=== PATIENT | male | born 1955 | race Caucasian/White ===

== ENCOUNTER 2018-11-06 16:24 | Observation (INO) | payer OTHER ==
[2018-11-06 17:11] LABS: Absolute Lymphocytes (CBC) 1.2 K/uL (0.7-4.9); Basophils % 0.6 % (0-1.3); Hematocrit 48.1 % (39.6-49.0); Lymphocytes % 12.6 % (15.3-44.8); RBC Red Blood Cell Count 5.26 M/uL (4.33-5.43)
[2018-11-06 17:32] LABS: Bilirubin Direct 0.1 mg/dL (0-0.2); Bilirubin Total 0.5 mg/dL (0.2-1.0); Potassium 3.6 mmol/L (3.5-5.1); Protein, Total 7.3 g/dL (6.4-8.2)
--- NOTE | 2018-11-06 18:08 | RAD REPORT ---
EXAM DESCRIPTION: CT - Abdomen Pelvis W Contrast - 11/06/2018 5:49 pm CLINICAL HISTORY: Abdominal pain, nausea and vomiting, diarrhea, GI bleed COMPARISON: October 17 TECHNIQUE: Biphasic, helical CT imaging of the abdomen and pelvis was performed following 100 ml non -ionic IV contrast. Oral contrast was given. All CT scans are performed using dose optimization technique as appropriate and may include automated exposure control or mA/KV adjustment according to patient size. FINDINGS: No suspicious findings in the lung bases. The liver, spleen, and pancreas show no suspicious findings. Gallbladder and biliary tree are also wi thout suspicious finding. Symmetric renal function is seen with no hydronephrosis or suspicious renal mass. No pyelonephritis o r acute parenchymal process. An approximately 4 cm upper pole right renal cyst is again identified. N onobstructing 5 mm calcification lower pole left kidney. Mild dilatation of the left pelvis and calic es believed to be normal variant extrarenal pelvis. No acute left-sided obstructive process. No adren al abnormalities. Urinary bladder shows no suspicious finding. Prostate gland and seminal vesicles wi thout suspicious finding. No gastric dilatation or wall thickening. No dilated small bowel loops. A few fluid-filled small rashawn l loops are present. Moderate stool volume is seen in the cecum and ascending colon with remainder th e colon mostly decompressed. A focal mass is not identified. Colitis is not confirmed. Mild mucosal l evel inflammatory changes could be occult on CT imaging. No free air, free fluid or inflammatory stranding. No hernia, mass or bulky lymphadenopathy. No suspicious bony findings. IMPRESSION: No bowel obstruction, free air or surgically emergent finding seen. A few prominent small bowel loops are present favoring ileus or gastroenteritis. The colon as visuali zed is without acute finding. No abnormality seen that would explain a GI bleed.
[2018-11-06] MEDS ORDERED: NA CHLORIDE 0.9% 1,000 ML ONE (18:42)
[2018-11-06] MEDS ORDERED: CIPROFLOXACIN 400mg IV 0 MG/0 ML BAG IV ONE (18:43)
[2018-11-06] MEDS ORDERED: METRONIDAZOLE 500mg IVPB 500 MG/100 ML BAG IV ONE (18:43)
--- NOTE | 2018-11-06 18:54 | ER ---
Nurse's Notes [facility] Name: Martin Hodges Age: 63 yrs Sex: Male : 1955 Arrival Date: 11/06/2018 Time: 16:27 Bed 5 Private MD: Jarocho Harrell T Diagnosis: Gastrointestinal hemorrhage, unspecified Presentation: 11/06 16:51 Presenting complaint: Patient states: Sent by Dr Aceves, reports severe lower abdominal ph pain this morning followed by N/V, then had dark blackish stool ,followed by diarrhea w/ bright red blood, also reports low BP at [place]'s office, pt normotensive in triage. Transition of care: patient was received from another setting of care (ambulatory specialty care practice), Dr Aceves. Onset of symptoms was November 06, 2018. Risk Assessment: Do you want to hurt yourself or someone else? Patient reports no desire to harm self or others. Care prior to arrival: None. 16:51 Method Of Arrival: Ambulatory ph 16:51 Acuity: CORTES 3 ph 19:41 Initial Sepsis Screen: Does the patient meet any 2 criteria? No. Patient's initial jd3 sepsis screen is negative. Does the patient have a suspected source of infection? No. Patient's initial sepsis screen is negative. Historical: - Allergies: 16:54 Codeine; ph - PMHx: 16:54 GERD; ph - Immunization history:: Adult Immunizations unknown. - Social history:: Smoking status: unknown. - Ebola Screening: : Patient negative for fever greater than or equal to 101.5 degrees Fahrenheit, and additional compatible Ebola Virus Disease symptoms. Screenin:39 Abuse screen: Denies threats or abuse. Nutritional screening: No deficits noted. jd3 Tuberculosis screening: No symptoms or risk factors identified. Fall Risk Ambulatory Aid- None/Bed Rest/Nurse Assist (0 pts). Gait- Normal/Bed Rest/Wheelchair (0 pts) Mental Status- Oriented to own ability (0 pts). Total Mark Fall Scale indicates No Risk (0-24 pts). Assessment: 19:32 General: Appears in no apparent distress. comfortable, well groomed, Behavior is calm, jd3 cooperative, appropriate for age. Pain: Denies pain. Neuro: Level of Consciousness is awake, alert, obeys commands, Oriented to person, place, time, situation. Cardiovascular: Capillary refill < 3 seconds Patient's skin is warm and dry. Respiratory: Airway is patent Respiratory effort is even, unlabored, Respiratory pattern is regular, symmetrical, Denies cough, shortness of breath. GI: Abdomen is round Reports bloody stool. : No signs and/or symptoms were reported regarding the genitourinary system. EENT: No signs and/or symptoms were reported regarding the EENT system. Derm: Skin is intact, Skin is dry, Skin is pale, Skin temperature is warm. Musculoskeletal: Circulation, motion, and sensation intact. Range of motion: intact in all extremities. 19:52 Reassessment: Patient appears in no apparent distress at this time. Patient and/or jd3 family updated on plan of care and expected duration. Pain level reassessed. Patient is alert, oriented x 3, equal unlabored respirations, skin warm/dry/pink. pt reported understanding of discharge instructions. even and steady gait upon discharge. Patient denies pain at this time. Patient states feeling better. 20:22 Reassessment: Patient appears in no apparent distress at this time. Patient and/or jd3 family updated on plan of care and expected duration. Pain level reassessed. Patient is alert, oriented x 3, equal unlabored respirations, skin warm/dry/pink. pt used the restroom on the upon discharge and had bloody stool. provider notified. pt assisted back to room and provider ordered for admission. 21:36 Reassessment: Patient appears in no apparent distress at this time. Patient and/or jd3 family updated on plan of care and expected duration. Pain level reassessed. Patient is alert, oriented x 3, equal unlabored respirations, skin warm/dry/pink. Patient states feeling better. Vital Signs: 16:54 BP 125 / 72; Pulse 51; Resp 18; Temp 97.5; Pulse Ox 99% on R/A; Weight 66.22 kg; Height ph 5 ft. 10 in. (177.80 cm); 18:30 BP 119 / 70; Pulse 54; Resp 17; Pulse Ox 100% ; sv 19:38 BP 121 / 58; Pulse 49; Resp 16 S; Pulse Ox 100% on R/A; jd3 21:32 BP 123 / 66; Pulse 48; Resp 16 S; Pulse Ox 100% on R/A; jd3 16:54 Body Mass Index 20.95 (66.22 kg, 177.80 cm) ph ED Course: 16:27 Patient arrived in ED. mr 16:28 Jarocho Harrell MD is Private Physician. mr 16:46 [facility] jr8 16:46 Matt Booth MD is Attending Physician. jr8 16:54 Triage completed. ph 16:54 Arm band placed on Patient placed in an exam room, on a stretcher. ph 16:56 Melchor Schuster, RUI is Primary Nurse. sg 17:04 Initial lab(s) drawn, by pa, sent to lab. Inserted saline lock: 22 gauge in right kj1 antecubital area, using aseptic technique. 17:49 CT Abd/Pelvis - IV Contrast Only In Process Unspecified. EDMS 18:52 Gaetano Aceves MD is Referral Physician. jr8 19:41 Patient has correct armband on for positive identification. Placed in gown. Bed in low jd3 position. Call light in reach. Side rails up X2. Adult w/ patient. 19:52 No provider procedures requiring assistance completed. IV discontinued, intact, jd3 bleeding controlled, No redness/swelling at site. Pressure dressing applied. 20:03 Michael Ibarra DO is Hospitalizing Provider. jr8 20:42 Inserted saline lock: 20 gauge in left forearm, using aseptic technique. ea Administered Medications: 18:50 Not Given (Physician Discretion): Cipro 400 mg 200 ml IVPB once over 60 mins jr8 18:51 Drug: NS 0.9% 1000 ml Route: IV; Rate: 1000 ml; Site: right antecubital; sv 19:57 Follow up: Response: No adverse reaction; IV Status: Completed infusion; IV Intake: jd3 1000ml 18:51 Drug: Flagyl 500 mg Volume: 100 ml; Route: IVPB; Rate: 200 ml/hr; Infused Over: 30 sv mins; Site: right antecubital; 19:57 Follow up: Response: No adverse reaction; IV Status: Completed infusion jd3 19:00 Drug: Bactrim (160 mg-800 mg (DS) 1 tablet Route: PO; sv 19:57 Follow up: Response: No adverse reaction jd3 Intake: 19:57 IV: 1000ml; Total: 1000ml. jd3 Outcome: 18:52 Discharge ordered by . jr8 19:52 Discharged to home ambulatory, with family. jd3 19:52 Condition: stable 19:52 Discharge instructions given to patient, family, Instructed on discharge instructions, follow up and referral plans. medication usage, Demonstrated understanding of instructions, follow-up care, medications, Prescriptions given X 2. 19:57 Patient left the ED. jd3 20:04 Decision to Hospitalize by Provider. jr8 21:31 Admitted to Med/surg accompanied by tech, via wheelchair, room 405, with chart, Report jd3 called to Tarah FABIAN 21:31 Condition: stable 21:31 Instructed on the need for admit, Demonstrated understanding of instructions. 21:42 Patient left the ED. jd3 Signatures: Dispatcher [employer] EDMS Sammie Coronel, RN Melchor Bradford, RN Kathy Stanley mr Wildabella, Ted, PA PA jrAdela Navarro, RN RN Annemarie Junior RN RN ea Davies, Jonathon, RN RN jd3 Jackson, Kandis kj1 Corrections: (The following items were deleted from the chart) 20:25 20:22 Reassessment: pt used the restroom on the upon discharge and had bloody stool. jd3 provider notified. pt assisted back to room and provider ordered for admission. helen
[2018-11-06] MEDS ORDERED: SMZ./TMP. 800/160 MG TABLET ONE (18:55)
--- NOTE | 2018-11-06 18:55 | EDPHYS ---
Physician Documentation [facility] Name: Martin Hodges Age: 63 yrs Sex: Male : 1955 Arrival Date: 11/06/2018 Time: 16:27 Bed 5 Private MD: Jarocho Harrell T ED Physician Matt Booth HPI: 11/06 18:00 This 63 yrs old Male presents to ER via Ambulatory with complaints of Rectal jr8 Bleeding. 18:00 Onset: The symptoms/episode began/occurred acutely, today. Context: the patient has no jr8 known special context relating to the rectal area complaint(s). Modifying factors: The symptoms are alleviated by nothing, The symptoms are aggravated by bowel movement. Associate signs and symptoms: Pertinent positives: abdominal pain in the right lower quadrant. The patient has not experienced similar symptoms in the past. The patient has been recently seen by a physician:. Patient has been recently worked up for chronic diarrhea by GI specialist. Stated that he had been doing well on new meds. Today had sudden severe abdominal pain. Now having melena and gross hematochezia . Historical: - Allergies: 16:54 Codeine; ph - PMHx: 16:54 GERD; ph - Immunization history:: Adult Immunizations unknown. - Social history:: Smoking status: unknown. - Ebola Screening: : Patient negative for fever greater than or equal to 101.5 degrees Fahrenheit, and additional compatible Ebola Virus Disease symptoms. ROS: 18:00 Eyes: Negative for injury, pain, redness, and discharge, ENT: Negative for injury, jr8 pain, and discharge, Neck: Negative for injury, pain, and swelling, Cardiovascular: Negative for chest pain, palpitations, and edema, Respiratory: Negative for shortness of breath, cough, wheezing, and pleuritic chest pain, Back: Negative for injury and pain, MS/Extremity: Negative for injury and deformity, Skin: Negative for injury, rash, and discoloration, Neuro: Negative for headache, weakness, numbness, tingling, and seizure. 18:00 Abdomen/GI: Positive for abdominal pain, nausea and vomiting, diarrhea, black/tarry stool, rectal bleeding, Negative for constipation, bowel incontinence, flatulence. Exam: 18:00 Eyes: Pupils equal round and reactive to light, extra-ocular motions intact. Lids and jr8 lashes normal. Conjunctiva and sclera are non-icteric and not injected. Cornea within normal limits. Periorbital areas with no swelling, redness, or edema. ENT: Nares patent. No nasal discharge, no septal abnormalities noted. Tympanic membranes are normal and external auditory canals are clear. Oropharynx with no redness, swelling, or masses, exudates, or evidence of obstruction, uvula midline. Mucous membranes moist. Neck: Trachea midline, no thyromegaly or masses palpated, and no cervical lymphadenopathy. Supple, full range of motion without nuchal rigidity, or vertebral point tenderness. No Meningismus. Cardiovascular: Regular rate and rhythm with a normal S1 and S2. No gallops, murmurs, or rubs. Normal PMI, no JVD. No pulse deficits. Respiratory: Lungs have equal breath sounds bilaterally, clear to auscultation and percussion. No rales, rhonchi or wheezes noted. No increased work of breathing, no retractions or nasal flaring. Back: No spinal tenderness. No costovertebral tenderness. Full range of motion. Skin: Warm, dry with normal turgor. Normal color with no rashes, no lesions, and no evidence of cellulitis. MS/ Extremity: Pulses equal, no cyanosis. Neurovascular intact. Full, normal range of motion. Neuro: Awake and alert, GCS 15, oriented to person, place, time, and situation. Cranial nerves II-XII grossly intact. Motor strength 5/5 in all extremities. Sensory grossly intact. Cerebellar exam normal. Normal gait. 18:00 Abdomen/GI: Inspection: abdomen appears normal, Bowel sounds: active, all quadrants, Palpation: soft, in all quadrants, mild abdominal tenderness, in the right lower quadrant, mass, is not appreciated, rebound tenderness, is not appreciated, voluntary guarding, is not appreciated, involuntary guarding, is not appreciated, no appreciated organomegaly, Indicators: McBurney's point is not tender, Silveira's sign is negative, Rovsing's sign is negative, Liver: tenderness, is not appreciated. Vital Signs: 16:54 BP 125 / 72; Pulse 51; Resp 18; Temp 97.5; Pulse Ox 99% on R/A; Weight 66.22 kg; Height ph 5 ft. 10 in. (177.80 cm); 18:30 BP 119 / 70; Pulse 54; Resp 17; Pulse Ox 100% ; sv 19:38 BP 121 / 58; Pulse 49; Resp 16 S; Pulse Ox 100% on R/A; jd3 21:32 BP 123 / 66; Pulse 48; Resp 16 S; Pulse Ox 100% on R/A; jd3 16:54 Body Mass Index 20.95 (66.22 kg, 177.80 cm) ph MDM: 16:57 Patient medically screened. jr8 18:50 Data reviewed: vital signs, nurses notes, lab test result(s), radiologic studies, CT jr8 scan. Data interpreted: Pulse oximetry: on room air is 100 %. Interpretation: normal. Counseling: I had a detailed discussion with the patient and/or guardian regarding: the historical points, exam findings, and any diagnostic results supporting the discharge/admit diagnosis, lab results, radiology results. ED course: No acute finding noted on CT or labs. Had another bloody bowel movement while here. Consulted Dr. Hilton. Wants him on antibiotics and will consult on case . 11/06 16:56 Order name: Basic Metabolic Panel; Complete Time: 17:58 11/06 16:56 Order name: CBC with Diff; Complete Time: 17:32 11/06 16:56 Order name: Creatinine for Radiology; Complete Time: 17:58 11/06 16:56 Order name: Hepatic Function; Complete Time: 17:58 11/06 16:56 Order name: Lipase; Complete Time: 17:58 11/06 17:33 Order name: CT Abd/Pelvis - IV Contrast Only; Complete Time: 18:19 11/06 16:56 Order name: IV Saline Lock; Complete Time: 17:10 11/06 16:56 Order name: Labs collected and sent; Complete Time: 17:10 Administered Medications: 18:50 Not Given (Physician Discretion): Cipro 400 mg 200 ml IVPB once over 60 mins jr8 18:51 Drug: NS 0.9% 1000 ml Route: IV; Rate: 1000 ml; Site: right antecubital; sv 19:57 Follow up: Response: No adverse reaction; IV Status: Completed infusion; IV Intake: jd3 1000ml 18:51 Drug: Flagyl 500 mg Volume: 100 ml; Route: IVPB; Rate: 200 ml/hr; Infused Over: 30 sv mins; Site: right antecubital; 19:57 Follow up: Response: No adverse reaction; IV Status: Completed infusion jd3 19:00 Drug: Bactrim (160 mg-800 mg (DS) 1 tablet Route: PO; sv 19:57 Follow up: Response: No adverse reaction jd3 Disposition: 11/07 08:09 Co-signature as Attending Physician, Matt Booth MD I agree with the assessment and kdr plan of care. Disposition: 11/06/18 20:04 Hospitalization ordered by Michael Ibarra for Observation. Preliminary diagnosis is Gastrointestinal hemorrhage, unspecified. - Bed requested for Telemetry/MedSurg (observation). - Status is Observation. jd3 - Condition is Stable. - Problem is new. - Symptoms are unchanged. UTI on Admission? No Signatures: Dispatcher [employer] EDSammie Daniels RN RUI Brina Hurtado RN Matt Sandoval MD MD [facility] Ted Patel PA PA jr8 Adela Valles RN RN Ziyad Heath RN RN jd3 Corrections: (The following items were deleted from the chart) 11/06 19:57 18:52 11/06/2018 18:52 Discharged to Home. Impression: Gastrointestinal hemorrhage, jd3 unspecified. Condition is Stable. Forms are Medication Reconciliation Form, Thank You Letter, Antibiotic Education, Prescription Opioid Use. Follow up: Gaetano Aceves; When: 2 - 3 days; Reason: Recheck today's complaints, Continuance of care, Re-evaluation by your physician. Problem is new. Symptoms have improved. jr8 20:03 19:57 11/06/2018 18:52 Discharged to Home. Impression: Gastrointestinal hemorrhage, jr8 unspecified. Condition is Stable. Discharge Instructions: Gastrointestinal Bleeding. Prescriptions for Flagyl 500 mg Oral Tablet - take 1 tablet by ORAL route every 6 hours for 10 days; 40 tablet, Bactrim DS 800-160 mg Oral Tablet - take 1 tablet by ORAL route every 12 hours for 10 days; 20 tablet. and Forms are Medication Reconciliation Form, Thank You Letter, Antibiotic Education, Prescription Opioid Use. Follow up: Gaetano Aceves; When: 2 - 3 days; Reason: Recheck today's complaints, Continuance of care, Re-evaluation by your physician. Problem is new. Symptoms have improved. 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 It is understood by the patient/guardian that if the Sx's persist or worsen they need to return immediately for re-evaluation. eladio 20: 18:50 ED course: No acute finding noted on CT or labs. Currently no more bloody stools. eladio Consulted Dr. Hilton. Wants him on antibiotics and to f/u in clinic. Patient good with this . jr8 20:06 20:04 Hospitalization Ordered by Michael Ibarra DO for Observation. Preliminary mw diagnosis is Gastrointestinal hemorrhage, unspecified. Bed requested for Telemetry/MedSurg (observation). Status is Observation. Condition is Stable. Problem is new. Symptoms are unchanged. UTI on Admission? No. jr8 21:42 20:06 11/06/2018 20:04 Hospitalization Ordered by Michael Ibarra DO for Observation. jd3 Preliminary diagnosis is Gastrointestinal hemorrhage, unspecified. Bed requested for Telemetry/MedSurg (observation). Status is Observation. Condition is Stable. Problem is new. Symptoms are unchanged. UTI on Admission? No. mw
--- NOTE | 2018-11-06 21:03 | P.HP ---
Certification for Inpatient Patient admitted to: Observation With expected LOS: <2 Midnights Patient will require the following post-hospital care: None Practitioner: I am a practitioner with admitting privileges, knowledge of patient current condition, hospital course, and medical plan of care. Services: Services provided to patient in accordance with Admission requirements found in Title 42 Section 412.3 of the Code of Federal Regulations Patient History Date of Service: 11/06/18 Primary Care Provider: Dr. Harrell; GI-Dr. Aceves Reason for admission: Diarrhea, rectal bleeding History of Present Illness: 63-year-old male presented to the emergency room with diarrhea and rectal bleeding. Patient with history of GERD and chronic diarrhea. Patient had colonoscopy 3 months ago with GI. He had 3 polyps that were removed at that time. 1 month ago he had an EGD which showed a polyp. He has had diarrhea for many years. He has been on multiple medications including hyoscyamine and meth scopolamine recent. This morning he had more severe diarrhea with melena which change to rectal bleeding. He also reported some periumbilical abdominal pain. His pain was around 5/10. No radiation was noted. He was seen by his GI doctor who sent him to the ER for further evaluation. In the ER patient evaluated. White count 9.2, hemoglobin 16. Sodium 140, potassium 3.6. BUN of 10, creatinine 1.1 with a GFR 63. Lipase 401. CT scan showed no acute abnormality. Prominent small bowel loops noted. Patient was reassessed. ER spoke to GI. Discharge from the ER was considered but the patient had more rectal bleeding. Patient was admitted for observation and further evaluation. When I saw the patient ER, he appeared comfortable. Minimal pain noted. Home medications list reviewed: Yes - Past Medical/Surgical History Diabetic: No -: GERD -: Chronic diarrhea -: Tobacco abuse -: Right hand surgery Psychosocial/ Personal History: Patient is - Family History Mother -: Other (see notes) (Ulcerative colitis) - Social History Smoking Status: Heavy Tobacco smoker (>10 cigarettes/day) Counseled patient to stop smoking for: less than 10 minutes Smoking therapy provided: Yes Patient receptive to therapy: Yes Alcohol use: Yes CD- Drugs: No Caffeine use: Yes Place of Residence: Home Review of Systems General: As per HPI Eyes: Unremarkable ENT: Unremarkable Respiratory: Unremarkable Cardiovascular: Unremarkable Gastrointestinal: Abdominal Pain, Diarrhea, Melena, Hematochezia, As per HPI Genitourinary: Unremarkable Musculoskeletal: Unremarkable Integumentary: Unremarkable Neurological: Unremarkable Lymphatics: Unremarkable Physical Examination - Vital Signs Temperature: 97.5 F Blood Pressure: 121/58 Pulse: 49 Respirations: 16 - Physical Exam General: Alert, In no apparent distress, Oriented x3, Cooperative HEENT: Atraumatic, Normocephalic, PERRLA, Mucous membr. moist/pink Neck: Supple, No Thyromegaly Respiratory: Clear to auscultation bilaterally, Normal air movement Cardiovascular: Normal pulses, Regular rate/rhythm Gastrointestinal: Normal bowel sounds, Soft and benign, Non-distended, No masses , No rebound, No guarding, Tenderness (Minimal pain to the epigastric region) Musculoskeletal: No erythema, No tenderness, No warmth Integumentary: No tenderness/swelling, No erythema, No warmth, No cyanosis Neurological: Normal speech, Normal strength at 5/5 x4 extr, Normal tone, Normal affect - Studies Laboratory Data (last 24 hrs) 11/06/18 17:00: Creatinine 1.13 11/06/18 17:00: WBC 9.2, Hgb 16.2, Hct 48.1, Plt Count 155 11/06/18 17:00: Sodium 140, Potassium 3.6, BUN 10, Creatinine 1.17, Glucose 89, Total Bilirubin 0.5, AST 16, ALT 14, Alkaline Phosphatase 104, Lipase 401 H Assessment and Plan - Plan Impression: Acute on chronic diarrhea with periumbilical abdominal pain complicated with melena and rectal bleeding suspect colitis GERD Plan: Acute on chronic diarrhea with periumbilical abdominal pain complicated with melena and rectal bleeding suspect colitis: Patient will be admitted for further evaluation and treatment. CT scan unremarkable but likely underlying colitis likely. Case discussed with GI. Patient will be started on IV Rocephin and Flagyl. Will obtain stool culture including C diff culture. Will monitor for further rectal bleeding and abdominal pain. Will recheck hemoglobin later and monitor closely. Continue with serial lab. Will provide medication for diarrhea including hyoscyamine and Lomotil. Will advance diet as tolerated. Will continue with IV fluids. DVT prophylaxis includes SCD. Likely discharge tomorrow with clinical improvement and cleared by GI. Daytime hospitalist team will follow his care. GERD: Continue home medication of Protonix. Discharge Plan: Home Plan to discharge in: 24 Hours - Advance Directives Does patient have a Living Will: No Does patient have a Durable POA for Healthcare: No - Code Status/Comfort Care Code Status Assessed: Yes (Patient is full code) Time Spent Managing Pts Care (In Minutes): 55
[2018-11-06] MEDS ORDERED: ONDANSETRON 4 MG/2 ML VIAL IV PRN (21:52)
[2018-11-06] MEDS ORDERED: DIPHENOX/ATROP SULF 1 TAB PO PRN (21:52)
[2018-11-06] MEDS ORDERED: HYOSCYAMINE SULF 0.125 MG TAB PO PRN (21:52)
[2018-11-06] MEDS ORDERED: ACETAMINOPHEN 500 MG TAB PO PRN (21:52)
[2018-11-06 22:07] VITALS: BMI 21.2
[2018-11-06 23:15] LABS: Hematocrit 42.8 % (39.6-49.0)
[2018-11-07] MEDS: METRONIDAZOLE 500mg IVPB 500 MG/100 ML BAG IV SCH ×3 (00:28→16:11)
[2018-11-07 02:28] LABS: Urine Appearance CLEAR; Urine Bilirubin NEGATIVE (NEG); Urine Blood NEGATIVE (NEG); Urine Color YELLOW; Urine Glucose NEGATIVE (NEG); Urine Protein NEGATIVE (NEG); Urine Urobilinogen 0.2 mg/dL (0.2-1.0); Urine pH 7.5 (5.0-7.0)
[2018-11-07 02:29] LABS: Urine Microscopic Reflex NO UMIC
[2018-11-07] MEDS: PANTOPRAZOLE 40MG TABLET PO SCH (05:59)
[2018-11-07 06:38] LABS: Absolute Lymphocytes (CBC) 0.7 K/uL (0.7-4.9); Hematocrit 43.7 % (39.6-49.0); Lymphocytes % 9.1 % (15.3-44.8); MPV 8.9 fL (7.6-11.3); RBC Red Blood Cell Count 4.79 M/uL (4.33-5.43)
[2018-11-07 06:41] LABS: Magnesium 2.4 mg/dL (1.8-2.4); Potassium 3.9 mmol/L (3.5-5.1)
[2018-11-07] MEDS ORDERED: PNEUMOCOCCAL VACCINE 0.5 ML IMVAC ONE (08:00)
[2018-11-07] MEDS: NA CHLORIDE 0.9% 1,000 ML IV SCH ×3 (08:02→19:16)
[2018-11-07] MEDS: CEFTRIAXONE/SWI 1gm 1 GM/10 ML SYR IV SCH (08:02)
[2018-11-07] MEDS ORDERED: CEFTRIAXONE 1 GM/NS 50 ML 1 GM/50 ML BAG IV SCH (09:00)
[2018-11-07] MEDS ORDERED: POTASSIUM 25 MEQ EFFERV TAB PO ONE (09:00)
--- NOTE | 2018-11-07 11:25 | P.PN ---
Subjective Date of Service: 11/07/18 Primary Care Provider: Dr. Harrell; GI-Dr. Aceves Chief Complaint: Diarrhea, rectal bleeding Patient seen and examined at bedside with RN. Chart reviewed. Case discussed with patient and family member at bedside. Currently pending GI consultation. Review of Systems 10-point ROS is otherwise unremarkable Physical Examination - Vital Signs Temperature: 98 F Blood Pressure: 101/55 Pulse: 58 Respirations: 16 Pulse Ox (%): 96 - Physical Exam General: Alert, In no apparent distress HEENT: Atraumatic, PERRLA, EOMI Neck: Supple, JVD not distended Respiratory: Clear to auscultation bilaterally, Normal air movement Cardiovascular: Regular rate/rhythm, Normal S1 S2 Gastrointestinal: Normal bowel sounds, No tenderness Musculoskeletal: No tenderness Integumentary: No rashes Neurological: Normal speech, Normal tone, Normal affect Lymphatics: No axilla or inguinal lymphadenopathy - Studies Laboratory Data (last 24 hrs) 11/06/18 17:00: Creatinine 1.13 11/06/18 17:00: WBC 9.2, Hgb 16.2, Hct 48.1, Plt Count 155 11/06/18 17:00: Sodium 140, Potassium 3.6, BUN 10, Creatinine 1.17, Glucose 89, Total Bilirubin 0.5, AST 16, ALT 14, Alkaline Phosphatase 104, Lipase 401 H Medications List Reviewed: Yes Assessment And Plan - Current Problems (Diagnosis) (1) Gastroenteritis Current Visit: Yes Status: Acute Plan: Patient with abdominal pain nausea vomiting and rectal bleeding -abdominal CT consistent with ileus versus gastroenteritis -patient continues to have bowel movement however no further rectal bleeding noted -IV antibiotics at this time -will continue with IV antibiotics and await GI recommendations at this time (2) Rectal bleeding Current Visit: Yes Status: Acute Plan: Rectal bleeding most likely secondary to gastroenteritis -GI has been consulted. Awaiting recommendations -hemoglobin is stable at this time Discharge Plan: Home Plan to discharge in: Greater than 2 days - Code Status/Comfort Care Code Status Assessed: Yes Critical Care: No
[2018-11-08] MEDS: METRONIDAZOLE 500mg IVPB 500 MG/100 ML BAG IV SCH ×2 (00:02→09:09)
[2018-11-08] MEDS: NA CHLORIDE 0.9% 1,000 ML IV SCH ×2 (03:52→09:09)
[2018-11-08] MEDS: PANTOPRAZOLE 40MG TABLET PO SCH (05:54)
[2018-11-08 06:09] LABS: Basophils % 0.9 % (0-1.3); Hematocrit 40.8 % (39.6-49.0); Lymphocytes % 15.7 % (15.3-44.8); MPV 8.9 fL (7.6-11.3); RBC Red Blood Cell Count 4.44 M/uL (4.33-5.43)
[2018-11-08 06:28] LABS: Magnesium 2.1 mg/dL (1.8-2.4); Potassium 4.5 mmol/L (3.5-5.1)
[2018-11-08] MEDS: CEFTRIAXONE/SWI 1gm 1 GM/10 ML SYR IV SCH (09:08)
--- NOTE | 2018-11-08 11:36 | P.DS ---
Admission Date: 11/06/18 Discharge Date: 11/08/18 Primary Care Provider: Dr. Harrell; GI-Dr. Aceves Disposition: ROUTINE DISCHARGE Discharge Condition: GOOD Reason for Admission: Diarrhea, rectal bleeding - Problems (1) Gastroenteritis Current Visit: Yes Status: Acute (2) Rectal bleeding Current Visit: Yes Status: Acute Brief History of Present Illness: 63-year-old male presented to the emergency room with diarrhea and rectal bleeding. Patient with history of GERD and chronic diarrhea. Patient had colonoscopy 3 months ago with GI. He had 3 polyps that were removed at that time. 1 month ago he had an EGD which showed a polyp. He has had diarrhea for many years. He has been on multiple medications including hyoscyamine and meth scopolamine recent. This morning he had more severe diarrhea with melena which change to rectal bleeding. He also reported some periumbilical abdominal pain. His pain was around 5/10. No radiation was noted. He was seen by his GI doctor who sent him to the ER for further evaluation. In the ER patient evaluated. White count 9.2, hemoglobin 16. Sodium 140, potassium 3.6. BUN of 10, creatinine 1.1 with a GFR 63. Lipase 401. CT scan showed no acute abnormality. Prominent small bowel loops noted. Patient was reassessed. ER spoke to GI. Discharge from the ER was considered but the patient had more rectal bleeding. Patient was admitted for observation and further evaluation. When I saw the patient ER, he appeared comfortable. Minimal pain noted. Hospital Course: Overall during the hospital stay patient remained stable Patient was initially admitted to the hospital for colitis with rectal bleeding. Patient had stool cultures done here in the hospital was positive for C. difficile. Patient was started on Cipro and Flagyl while here in the hospital. Had marked improvement in his symptoms. Diarrhea did improve markedly and rectal bleeding had stopped. At that time patient's diet was advanced to a full liquid diet which she tolerated well and then to GI soft. Patient tolerated both of diet well and thus was discharged home under stable condition. GI consultation was placed here in the hospital however GI was not available and thus a monitor the patient to follow up with them outpatient. Once patient had marked improvement in his symptoms he was discharged home under stable condition. Vital Signs/Physical Exam: Temp Pulse Resp BP Pulse Ox 98.0 F 63 16 95/54 L 98 11/08/18 08:00 11/08/18 08:00 11/08/18 08:00 11/08/18 08:00 11/08/18 08:00 General: Alert, In no apparent distress HEENT: Atraumatic, PERRLA, EOMI Neck: Supple, JVD not distended Respiratory: Clear to auscultation bilaterally, Normal air movement Cardiovascular: Regular rate/rhythm, Normal S1 S2 Gastrointestinal: Normal bowel sounds, No tenderness Musculoskeletal: No tenderness Integumentary: No rashes Neurological: Normal speech, Normal tone, Normal affect Lymphatics: No axilla or inguinal lymphadenopathy Laboratory Data at Discharge: WBC 6.3 K/uL (4.3-10.9) D 11/08/18 05:38 Hgb 14.0 g/dL (13.6-17.9) 11/08/18 05:38 Hct 40.8 % (39.6-49.0) 11/08/18 05:38 Plt Count 134 K/uL (152-406) L 11/08/18 05:38 Sodium 143 mmol/L (136-145) 11/08/18 05:38 Potassium 4.5 mmol/L (3.5-5.1) 11/08/18 05:38 BUN 7 mg/dL (7-18) 11/08/18 05:38 Creatinine 1.16 mg/dL (0.55-1.3) 11/08/18 05:38 Glucose 90 mg/dL (74-106) 11/08/18 05:38 Magnesium 2.1 mg/dL (1.8-2.4) 11/08/18 05:38 Total Bilirubin 0.5 mg/dL (0.2-1.0) 11/06/18 17:00 AST 16 U/L (15-37) 11/06/18 17:00 ALT 14 U/L (12-78) 11/06/18 17:00 Alkaline Phosphatase 104 U/L (45-117) 11/06/18 17:00 Lipase 401 U/L (73-393) H 11/06/18 17:00 Home Medications: diazePAM [Diazepam] 5 mg PO BEDTIME 11/06/18 Ciprofloxacin HCl [Cipro 500 MG Tablet] 500 mg PO BID #28 tab 11/08/18 metroNIDAZOLE [Flagyl] 500 mg PO Q6H #56 tablet 11/08/18 New Medications: Ciprofloxacin HCl [Cipro 500 MG Tablet] 500 mg PO BID #28 tab metroNIDAZOLE [Flagyl] 500 mg PO Q6H #56 tablet Diet: Regular Activity: Ad ksenia Followup: Gaetano Aceves MD [ASSOCIATE-ACTIVE - CAN ADMIT] - 1 Week
[2018-11-08 12:07] VITALS: BP 98/66; TEMP 98.3
[2018-11-08 14:37] VITALS: O2SAT 98
== END 2018-11-08 14:28 | disposition home or self-care (01) ==
LOC: ER 16:24 → ERHOLD 20:48 → 4TH 21:36
PROVIDERS: ADMIT Family Medicine; ATTEND Family Medicine
DX: K52.9 Noninfective gastroenteritis and colitis, unspecified (principal); B96.89 Other specified bacterial agents as the cause of diseases classified elsewhere; K62.5 Hemorrhage of anus and rectum; K21.9 Gastro-esophageal reflux disease without esophagitis; F17.210 Nicotine dependence, cigarettes, uncomplicated; Z86.010 Personal history of colon polyps
CPT/HCPCS: 96365; 87045; 85025 ×3; 80048 ×3; 36415 ×2; 83735 ×2; 87177; 80076; 87046; 87493; 87209; 85018; 85014; 81003; 83690; 74177; 99285; Q9967; J0696 ×2; J7030 ×5; G0378 ×2; J0744